=== PATIENT | female | born 1960 | race Native Hawaiian/Other Pacific Islander ===

== ENCOUNTER 2017-04-03 00:13 | Emergency (ER) | payer SELFPAY ==
[~2017-04-03] VITALS: Ht 170.2 cm; Wt 68.6 kg
[2017-04-03] MEDS ORDERED: MULT1TAB10 PO (00:29)
[2017-04-03] MEDS ORDERED: FISH1000 PO (00:29)
[2017-04-03] MEDS ORDERED: LORazepam 2 MG/ML VIAL (J2060) IV STA (01:15)
[2017-04-03] MEDS ORDERED: LORazepam 2 MG/ML VIAL (J2060) As Ordered ONE (01:16)
[2017-04-03] MEDS ORDERED: NS 1,000 ML IV ONE (01:30)
[2017-04-03] MEDS ORDERED: levETIRAcetam INJection 1,000 MG in D5W 100 ML IV ONE (01:30)
[2017-04-03 02:03] LABS: VENOUS BASE EXCESS -3.9 (-2.0-2.0); VENOUS O2 SATURATION 93.1 % (60.0-80.0); VENOUS PARTIAL PRESSURE CO2 55.8 mmHg (38.0-50.0); VENOUS STANDARD HCO3 21.2 MEQ/L; VENOUS TOTAL CO2 25.8 MEQ/L (24.0-28.0)
[2017-04-03 02:09] LABS: BASO # 0.1 K/mm3 (0.0-0.2); BASO % 1.2 % (0.0-1.0); EOS # 0.3 K/mm3 (0.0-0.50); EOS % 4.8 % (0.0-3.0); LARGE UNSTAINED CELL # 0.1 K/mm3 (0.0-0.4); LARGE UNSTAINED CELL % 1.6 % (0.0-4.0); LYMPH # 2.2 K/mm3 (1.5-4.5); LYMPH % 29.1 % (24.0-44.0); MEAN CORPUSCULAR HEMOGLOBIN 29.4 pg (27.0-33.0); MEAN CORPUSCULAR HGB CONC 33.2 g/dl (32.0-36.5); MEAN CORPUSCULAR VOLUME 88.6 fl (80.0-96.0); MONO # 0.4 K/mm3 (0.0-0.8); MONO % 5.1 % (0.0-5.0); NEUTROPHILS # 4.1 K/mm3 (1.8-7.7); NEUTROPHILS % 58.1 % (36.0-66.0); PLATELET COUNT, AUTOMATED 248 k/mm3 (150-450); RED CELL DISTRIBUTION WIDTH 13.6 % (11.5-14.5); WHITE BLOOD COUNT 7.1 K/mm3 (4.0-10.0)
[2017-04-03 03:19] LABS: OSMOLALITY SERUM 296 MOSM/KG (275-295)
[2017-04-03 03:29] LABS: ALBUMIN/GLOBULIN RATIO 0.71 (1.00-1.93); ALKALINE PHOSPHATASE 133 U/L (45-117); ALT/SGPT 53 U/L (12-78); ANION GAP 7 MEQ/L (8-16); AST/SGOT 38 U/L (15-37); BILIRUBIN,DIRECT < 0.1 MG/DL (0.0-0.2); BILIRUBIN,TOTAL 0.2 MG/DL (0.2-1.0); BLOOD UREA NITROGEN 16 MG/DL (7-18); CALCIUM LEVEL 7.6 MG/DL (8.5-10.1); CARBON DIOXIDE LEVEL 25 MEQ/L (21-32); CHLORIDE LEVEL 108 MEQ/L (98-107); CREATININE FOR GFR 0.82 MG/DL (0.55-1.02); GLOMERULAR FILTRATION RATE > 60.0 (>51); GLUCOSE, FASTING 121 MG/DL (70-105); POTASSIUM SERUM 3.9 MEQ/L (3.5-5.1); SODIUM LEVEL 140 MEQ/L (136-145); TOTAL PROTEIN 7.2 GM/DL (6.4-8.2)
[2017-04-03 04:31] LABS: METHADONE URINE NEGATIVE (NEGATIVE)
--- NOTE | 2017-04-03 04:45 | REP ---
Clinical: Seizures . Comparison: None . Findings: Examination is limited by motion artifact. The ventricles, sulci, and cisterns are grossly normal in position and appearance. Tam-white differentiation is grossly maintained. No obvious acute intracranial hemorrhage, mass/mass effect, pathology or trauma/injury. No evidence for acute infarction. No extra-axial fluid collection. Calvarium is intact. Paranasal sinuses and mastoid air cells are clear. Impression: Limited examination due to motion artifact. No definite evidence for acute intracranial pathology or trauma/injury. Signed by Rod Nguyễn MD 04/03/2017 04:36 A
[2017-04-03] MEDS ORDERED: AMMONIA AROMATIC INHALANT (FLOOR STOCK) STA (05:29)
[2017-04-03] MEDS ORDERED: KEPP500T6 PO (06:55)
[2017-04-03 07:42] VITALS: BP 99/54
--- NOTE | 2017-04-04 09:10 | ECGEPIP ---
Stationary ECG Study [facility] [place] - ED Test Date: 2017-04-03 Pat Name: DELANEY ZABALA Department: Room: - Gender: F Senior [employer]: tk : 1960 Requested By: LORENE Reza Order Number: [id number] Reading MD: Nasrin Avelar Measurements Intervals [place] Rate: 125 P: 65 NC: 164 QRS: 20 QRSD: 86 T: 44 QT: 392 QTc: 567 Interpretive Statements SINUS TACHYCARDIA NONSPECIFIC T-WAVE ABNORMALITY ABNORMAL RHYTHM ECG NO PRIOR FOR COMPARISON Electronically Signed On 04-04-2017 9:10:14 EDT by Nasrin Avelar
== END 2017-04-03 07:43 | disposition home or self-care (01) ==
LOC: EDBD 00:13 → M ED 01:49
DX: G40.309 Generalized idiopathic epilepsy and epileptic syndromes, not intractable, without status epilepticus (principal); Z79.899 Other long term (current) drug therapy
CPT/HCPCS: 36600; 70450; 80048; 80076; 80306; 82550; 82553; 82803; 83930; 84443; 85025; 93005; 93041; 96374; 96375; 99285; G0480; J1953; J2060

== ENCOUNTER → 2017-06-15 | Outpatient (REF) | payer OTHER ==
[~2017-06-15] MED LIST: FISH1000 PO; KEPP1TAB PO; MULT1TAB10 PO
== END ==
LOC: CANPREREF → M LABNEURO 13:20
PROVIDERS: ATTEND Psychiatry & Neurology Neurology
DX: R56.9 Unspecified convulsions (principal)

== ENCOUNTER → 2017-06-15 | Outpatient (REF) | payer OTHER | LOC: M LABNEURO 13:20 | PROVIDERS: ATTEND Psychiatry & Neurology Neurology | DX: R56.9 Unspecified convulsions (principal) ==

== ENCOUNTER → 2017-06-22 | Outpatient (CLI) | payer OTHER ==
--- NOTE | 2017-06-22 13:35 | REPMRS ---
Patient History The patient states she had a clinical breast exam in January 2017.No known family history of cancer. Digital Mammo Screening Bilat: June 22, 2017 - Exam #: [id number] Bilateral CC and MLO view(s) were taken. Technologist: Nellie Daily, Technologist No prior studies available for comparison. FINDINGS: There are scattered fibroglandular densities. There is no evidence of dominant mass, architectural distortion, or clustered microcalcification typical of malignancy. ASSESSMENT: BI-RADS/ACR category 1 mammogram. Negative. Recommendation Routine screening mammogram of both breasts in 1 year (for women over age 40). This mammogram was interpreted with the aid of an FDA-approved computer-aided dectection system. Electronically Signed By: Girish Riley MD 06/22/17 0538
== END ==
LOC: M RAD 11:23
PROVIDERS: ATTEND Internal Medicine
DX: Z12.31 Encounter for screening mammogram for malignant neoplasm of breast (principal)